=== PATIENT | male | born 1960 | race Caucasian/White ===

== ENCOUNTER 2017-07-28 13:45 | Inpatient (IN) ==
[2017-07-28] MEDS ORDERED: CeFAZolin Syr 2,000MG/20 ML 2,000 MG/20 ML SYRINGE IVPB ONE (14:13)
[2017-07-28] MEDS ORDERED: Plasma-Lyte A (PH 7.4) 1,000 ML IVC SCH (14:15)
--- NOTE | 2017-07-28 14:22 | Anesthesia Evaluation PreOp ---
Date of Encounter: 07/28/17 Time of Encounter: 14:20 - Past History Planned Operation: Revision R total knee arthroplasty Cardiac History: Denies any Significant Hx Pulmonary History: Denies Any Significant HX Other Medical History: Other (arthritis) Anesthesia History: No Prior Anesthetic Complications, Past Anesthesia (RTKR, R knee hardware removal, cholecystectomy, appendix, R knee scope x 2, L knee scope ) Alcohol Use: none Drug use: none Medications and Allergies Krill/Om-3/Dha/Epa/Phospho/Ast [Krill Oil 1,000 mg Softgel] 1 cap PO DAILY 07/28 [History] Magnesium 200 mg PO DAILY 07/28/17 [History] Multivitamin [One Daily Essential] 1 tab PO DAILY 07/28/17 [History] 3 Allergy/AdvReac Type Severity Reaction Status Date / Time No Known Allergies Allergy Verified 07/19/17 15:42 - Meds/Allergy Pre-op Review Medications Reviewed: Yes Allergies Reviewed: Yes Beta Blockers on Current Med List: No Anesthesia Results - Labs Laboratory Tests 07/19/17 07/19/17 07/19/17 15:52 15:52 15:52 WBC 7.1 Hgb 17.2 H Hct 52.1 H Plt Count 233 PT 10.9 INR 1.0 APTT 31.9 Sodium 137 Potassium 4.7 Chloride 103 Carbon Dioxide 29 BUN 14 Creatinine 0.96 Anesthesia Exam O2 Sat Height 1.85 m Height 1.85 m Height 1.85 m Weight 106.141 kg Weight 106.141 kg Weight 106.141 kg O2 Sat by Pulse Oximetry 95 Vital Signs Temp Pulse Resp BP Pulse Ox 97.8 F 78 18 159/94 95 07/28/17 13:58 07/28/17 13:58 07/28/17 13:58 07/28/17 13:58 07/28/17 13:58 Height: 1.85m Weight: 106kg NPO (# of Hours): >8 - HEENT Pupil (Motor): Pupils equal, EOMI Mallampati: II Teeth: Poor dentition Oral Opening: Greater than 3 - FIRST FRONT VENTILATOR LOC: Oriented FIRST FRONT VENTILATOR Motor: Normal RUE, Normal LUE, Normal RLE, Normal LLE, Normal Face FIRST FRONT VENTILATOR Sensory: Normal: RUE, LUE, RLE, LLE, Face - Cardiac Rhythm: Regular - Pulmonary Breath Sounds: bilateral Clear Respiratory Effort: Symmetrical Anesthesia Assess/Plan ASA Score: 2 Modified Natasha Scale for Level of Consciousness: Cooperative, oriented, and tranquil Anesthetic Plan: Regional (adductor canal nn block, spinal, r/b/a discussed, questions answered, consent obtained) Monitoring Plan: Standard Monitors Recovery Plan: PACU
[2017-07-28] MEDS ORDERED: Acetaminophen IV 1,000 MG/100 ML INFUS..BTL IVPB ONE (14:27)
[2017-07-28] MEDS ORDERED: *HR* Ropivacaine/PF 0.5% 20 ML VIAL ONE (14:34)
--- NOTE | 2017-07-28 14:39 | History & Physical Report ---
Date of Encounter: 07/28/17 Time of Encounter: 14:39 24 Hour HP Update - Instructions Instructions: If the History and Physical is less than 30 days old and was completed prior to A.M. admission and or procedure and has NOT been updated on calendar day of procedure please complete this update prior to performing procedure. - Update Patient reports changes in Medical Condition: No Changes in examination, assessment, or condition: No Changes in Medication: No Preop tests/diagnostics Reviewed: Yes Surgery Remains Indicated: Yes Consent for Planned Operative Procedure(s) Verified: Yes - Pre-Operative Checklist Preoperative Checklist Indicated: No Prophylactic Antibiotic Ordered: Yes Is VTE Prophylaxis Indicated?: Yes
[2017-07-28] MEDS ORDERED: *HR* Morphine Sulfate/PF 10 MG/10 ML AMPUL ONE (14:49)
[2017-07-28] MEDS ORDERED: Ketorolac 30 MG/ML VIAL ONE (14:49)
[2017-07-28] MEDS ORDERED: *HR* FentaNYL (PF) 100 MCG/2 ML VIAL ONE (14:49)
[2017-07-28] MEDS ORDERED: Lidocaine -MPF 2% 2 ML VIAL ONE (14:49)
[2017-07-28] MEDS ORDERED: Ondansetron 4 MG/2 ML VIAL ONE (14:49)
[2017-07-28] MEDS ORDERED: *HR* Propofol 200 MG/20 ML VIAL IVP ONE (14:49)
[2017-07-28] MEDS ORDERED: *HR* Midazolam HCl 2 MG/2 ML VIAL ONE (14:49)
[2017-07-28] MEDS ORDERED: Ethanol\\Acetic Acid\\Na Ace\\Ben 1,000 ML IRRIG.SOLN IR ONE (14:54)
--- NOTE | 2017-07-28 15:25 | Discharge Summary ---
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 - Discharge Medications Home Medications: Aspirin Enteric Coated [Aspirin EC] 325 mg PO BID #20 tablet.dr 07/28/17 [Rx] Krill/Om-3/Dha/Epa/Phospho/Ast [Krill Oil 1,000 mg Softgel] 1 cap PO DAILY 07/28 [History] Magnesium 200 mg PO DAILY 07/28/17 [History] Multivitamin [One Daily Essential] 1 tab PO DAILY 07/28/17 [History] OxyCODONE Immed Rel [Roxicodone 5 MG] 5 mg PO Q4HR PRN 6 Days #24 tablet [Rx] Allergies/Adverse Reactions: 3 Allergy/AdvReac Type Severity Reaction Status Date / Time No Known Allergies Allergy Verified 07/19/17 15:42 Primary care physician: Zeynep Vargas - Patient Status Disposition: Home, Self-Care Condition: Good Functional capacity at discharge: uses cane/walker Overall status at discharge: patient is progressing back to baseline - Discharge Instructions Follow Up With: Zeynep Vargas, SILK SCREEN OPERATOR [Primary Care Provider] - - Hospital Course Hospital course: Mr. Ambriz is a 57 year old male Status post revision right total knee The patient had an uneventful postoperative course. They received antibiotics and physical therapy and were discharged in stable condition. There will follow -up in the office in 2 weeks. - Time Spent with Patient Total time spent providing and/or coordinating discharge services:
--- NOTE | 2017-07-28 15:53 | Anesthesia Procedures ---
Date of Encounter: 07/28/17 Time of Encounter: 14:55 Procedures: Anesthesia - Epidural/Spinal Patient ID/Chart reviewed: Yes Patient examined: Yes Supplemental Oxygen: Nasal Cannula Supplemental Oxygen Rate (L/min): 2 Sedation: Versed (mg): 2 Site Prep: Sterile prep and drape, Povidone-Iodine 1% Patient position: upright Local Anesthetic: Lidocaine 1% Amount of Local Anesthetic used: 3 Interspace Used: L4-L5 Blood: No CSF: Yes Paresthesia: Yes (relieved with repositioning of needle) Spinal Needle Gauge: 25 Spinal Dose: bupivicaine .5%, 20 mg wityh duramorpoh .3mg Procedure: right total knee revision Vitals + FHT's: vss throughout procedure
--- NOTE | 2017-07-28 15:58 | Anesthesia Procedures ---
Date of Encounter: 07/28/17 Time of Encounter: 15:10 Procedures: Anesthesia - Nerve Block Procedure Date: 07/28/17 Time: 15:10 Allergies/Adv Reactions: Daphney Pre-op Diagnosis: Painful Right Knee Arthroplasty Surgical Procedure: Revision of Right Total Knee Arthroplasty Checklist: Correct Patient Identifier, Correct procedure, History checked Correct side: Right Blood Thinner: No Monitor Applied: EKG, BP, Pulse Oximetry Supplemental Oxygen via Nasal Cannula (L/min): 2 Sedation: Versed (mg): 0 (Pt received Versed with SAB) Indication: Primary Anesthesia Pre-op Neuro Deficits: No Block Type: Other (Adductor Canal) Catheter placed: No Sterile Technique: Yes Ultrasound used: Yes Anatomy identified: Yes Visual spread of Local: Yes Neuro Stimulation: No Blood on Needle Aspiration: No Smooth Injection of Local: Yes Pain with Injection of Local: No Prep: Chlorhexadine Needle: 22 x 50 mm Stimuplex (Echogenic) Local: Ropivacaine (.5% ) Volume (cc): 30 Number of Attempts: 1 Complications: None/effective block Vitals: VSS throughout procedure
[2017-07-28] MEDS ORDERED: EPHEDrine 50 MG/ML VIAL ONE (16:02)
[2017-07-28] MEDS ORDERED: *HR* Promethazine 25 MG/ML VIAL IVP PRN (16:45)
[2017-07-28] MEDS ORDERED: Albuterol 2.5 MG/3 ML NEBULIZER IH PRN (16:45)
--- NOTE | 2017-07-28 17:00 | Orthopedic Operative Note ---
Date of procedure: 07/28/17 Pre-op diagnosis: Right painful total knee, metal allergy, femoral loosening Post-op diagnosis: same Procedure: Procedure: Right revision total knee Estimated blood loss: 300 Hardware: Metal and polyethylene replacement. Biomet SSK femur: 65, 16 x 120 stem Tibia: 79, 14 x 80 stem Constrained Latonia: 20 Exam Under anesthesia: Full flexion and extension mid flexion varus valgus instability. Procedural Notes: No abnormal-looking fluid loosening of the femoral component. Operative procedure: The patient was brought to the operating room and placed on the operating room table. After general anesthesia was administered the operative knee was examined. Findings were noted in the exam under anesthesia. The operative extremity was prepped and draped in sterile surgical fashion. The patient received IV antibiotics prior to skin incision. A standard midline incision was made centered over the patella through the old incision. The incision was made through the skin and subcutaneous tissue. A medial parapatellar tendon approach was performed. Care was taken to preserve tissue along the medial aspect of the patella. And to protect the patella tendon. The deep MCL was released off the medial tibia. The infra patella fat pad was excised. Fluid was encountered this was normal joint fluid, Cultures were obtained and gram . The knee was brought into flexion the poly-was removed. The interface between the patient's femoral component and distal femur were disrupted with a osteotome and oscillating saw. Femoral component was loose and removed removed removed without significant bone loss. Attention was then turned to the tibial component. The same technique was used to remove the tibial component by disrupting the interface between the patient's tibial component and the patients proximal tibia. The tibial component was removed without significant bone loss. The tibia was sized to a 79 it was reamed up to a 14 x 80 Trial had good fit and fixation. The femur was sized to a 65, was reamed up to a 60 x 120 The finishing guide was seated and the box cut was made. The trial had good fit and fixation. Both trial components were seated and the 20 constrained Latonia was seated and secured. The knee had full flexion and full extension with no instability. Patella had excellent patella tracking. The trial components were removed. The knee sat for 2 minutes with a antimicrobial solution. It was irrigated out with 2 L of pulse irrigation. The components were assembled on the back table, the tibia cemented first followed by the femur. The 20 constrained liner was seated and secure. The knee was brought to full extension while the cement hardened. The patella was cemented and held in place with patellar holding clamp. After the cement hardened the knee was irrigated out again. The extensor mechanism was closed with a running #2 Fiberwire suture and a running #2 PDS suture. The deep tissue was irrigated and closed deep with #1 PDS suture superficially with 0 PDS suture. The skin was closed with skin jacque. The patient was placed in a sterile dressing and postoperative brace. They were extubated and transferred to recovery room in stable condition. Anesthesia: GETA Surgeon: Rc Purdy Was there an assistant financial accountant present: No Estimated blood loss (cc): 300 Condition: stable Disposition: PACU
[2017-07-28 17:46] LABS: Hematocrit 45.4 % (37.5-50.1); Hemoglobin 15.2 g/dL (12.9-16.9)
--- NOTE | 2017-07-28 17:48 | Anesthesia Evaluation Post Op ---
Date of Encounter: 07/28/17 Time of Encounter: 17:47 - Vital Signs Vital Signs: Vital Signs/O2 Sat, Most Current Temp Pulse Resp BP Pulse Ox 97.7 F 77 12 145/93 96 07/28/17 17:45 07/28/17 17:45 07/28/17 17:45 07/28/17 17:45 07/28/17 17:45 - Lungs Lungs: Clear Ascult./Percussion - Airway Airway: Non-obstructed - Cardiovascular Regular Rate - Mental Status Mental Status: Alert & Oriented, Answers Appropriately - Pain Pain Scale: 0 Pain Scale used: Numeric (1 - 10) - Nausea Vomiting Nausea Vomiting: Not Present - Hydration Hydration: Tolerates oral liquids - Discharge PostOp Status: Transfer Patient to floor Attestation: I have assessed this patient and find they meet discharge criteria.
[2017-07-28] MEDS ORDERED: *HR* Enoxaparin 30 MG/0.3 ML SYRINGE SQ SCH (18:00)
[2017-07-28] MEDS ORDERED: Sennosides 8.6 MG TABLET PO PRN (18:12)
[2017-07-28] MEDS ORDERED: MOM Conc 10 ML UD.LIQ PO PRN (18:12)
[2017-07-28] MEDS ORDERED: Ondansetron 4 MG/2 ML VIAL IVP PRN (18:12)
[2017-07-28] MEDS ORDERED: Naloxone 0.4 MG/ML INJ IVP PRN (18:12)
[2017-07-28] MEDS ORDERED: Temazepam 15 MG CAPSULE PO PRN (18:12)
[2017-07-29] MEDS: CeFAZolin Premix DUPLEX 2,000 MG/50 ML BAG IVPB SCH ×2 (00:17→09:00)
[2017-07-29] MEDS: Ringers Solution, Lactated 1,000 ML IVC SCH ×2 (00:22→12:09)
[2017-07-29 03:54] LABS: Hematocrit 43.9 % (37.5-50.1); Hemoglobin 14.4 g/dL (12.9-16.9)
[2017-07-29 04:19] LABS: BUN/Creatinine Ratio 14 (6-26); Blood Urea Nitrogen 13 mg/dL (6-20); Calcium 8.7 mg/dL (8.6-10.3); Carbon Dioxide 26 mEq/L (23-29); Chloride 103 mEq/L (98-107); Glucose 155 mg/dL (70-105); Osmolality,Calculated 285 (280-300); Potassium 4.8 mEq/L (3.5-5.1); Sodium 136 mEq/L (136-145); eGFR For African Americans > 60 (> 60); eGFR For Non-African Americans > 60 (> 60)
[2017-07-29] MEDS: *HR* Enoxaparin 30 MG/0.3 ML SYRINGE SQ SCH (05:14)
--- NOTE | 2017-07-29 08:01 | Orthopedics Progress Note ---
Date of Encounter: 07/29/17 Time of Encounter: 08:01 - Assessment and Plan (1) Painful total knee replacement, right Current Visit: Yes Status: Chronic Qualifiers: Encounter type: subsequent encounter Qualified Code(s): T84.84XD - Pain due to internal orthopedic prosthetic devices, implants and grafts, subsequent encounter; Z96.651 - Presence of right artificial knee joint; Z96.651 - Presence of right artificial knee joint (2) Status post revision of total replacement of right knee Current Visit: Yes Status: Acute (3) Allergy to metal Current Visit: Yes Status: Chronic Subjective Interval history: Patient was seen this morning doing well without complaints. Afebrile vital signs stable. Operative extremity: Neurovascularly intact Dressing clean dry and intact Calves nontender Assessment and plan: Continue with postoperative care Hematocrit 43 Objective Vital signs: Vital Signs Temp Pulse Resp BP Pulse Ox 07/29/17 07:28 97.9 F 84 16 118/72 95 07/29/17 04:01 97.7 F 80 18 133/78 96 07/29/17 00:53 97.8 F 91 16 142/88 94 07/28/17 21:45 97.8 F 97 16 152/74 94 07/28/17 20:50 97.5 F L 91 16 162/97 96 07/28/17 19:17 97.8 F 79 17 156/91 95 07/28/17 18:34 97.8 F 72 17 135/81 96 07/28/17 18:05 97.7 F 75 15 157/93 97 07/28/17 17:45 97.7 F 77 12 145/93 96 07/28/17 17:35 97.7 F 70 12 151/94 97 07/28/17 17:25 72 12 148/85 96 07/28/17 17:15 70 12 143/90 94 07/28/17 17:05 97.4 F L 77 16 141/87 97 07/28/17 14:53 77 16 198/100 96 07/28/17 13:58 97.8 F 78 18 159/94 95 Intake and Output 07/28/17 07/29/17 07/29/17 23:59 07:59 15:59 Intake Total 350 / 350 Output Total 275 / 275 325 / 325 Balance -275 / -275 25 / 25 Intake: Oral 350 / 350 Output: Urine 75 / 75 325 / 325 Estimated Blood Loss 200 / 200 - Labs CBC & BMP: 07/29/17 02:47 07/29/17 02:47 Labs: Abnormal lab results Glucose 155 mg/dL (70-105) H 07/29/17 02:47 - VTE Documentation of Mechanical Device: Venous foot pump, device Consult Discharge Plan - Plan Referrals: Zeynep Vargas, DERMATOLOGIST MANAGING PARTNER [Primary Care Provider] -
[2017-07-29] MEDS ORDERED: Magnesium Oxide 400 MG TABLET PO SCH (09:00)
[2017-07-29] MEDS ORDERED: Multivit/Ca/Min/Fe/FA 1 TAB TABLET PO SCH (09:00)
[2017-07-29] MEDS ORDERED: (Krill/Om-3/Dha/Epa/Phospho/Ast [Krill Oil 1,000 Mg S) PO SCH (09:00)
[2017-07-29] MEDS ORDERED: *HR* OxyCODONE Immed Rel 5 MG TABLET PO PRN (15:26)
[2017-07-29] MEDS: *HR* OxyCODONE Immed Rel 5 MG TABLET PO PRN ×2 (16:04→21:32)
--- NOTE | 2017-07-29 17:03 | Event Note ---
Date of Encounter: 07/29/17 Time of Encounter: 12:20 PCR- POD#1 Right revision total knee 07/28/17 PCR - Patient seen at bedside. doing well with no concerns. minimal drainage to distal dressing. dressing to be changed before discharge. Pain control: adequate All questions and concerns addressed. Educated on use of incentive spirometer, ambulation, and hydration. Patient educated on post-operative restrictions and care. Addressed: see above. D/C plan: home tomorrow with outpatient therapy
[2017-07-30] MEDS: *HR* OxyCODONE Immed Rel 5 MG TABLET PO PRN (02:03)
[2017-07-30 03:46] LABS: Hematocrit 36.2 % (37.5-50.1)
[2017-07-30 03:47] LABS: Hemoglobin 12.4 g/dL (12.9-16.9)
[2017-07-30 04:34] LABS: BUN/Creatinine Ratio 17 (6-26); Blood Urea Nitrogen 15 mg/dL (6-20); Calcium 8.5 mg/dL (8.6-10.3); Carbon Dioxide 26 mEq/L (23-29); Chloride 103 mEq/L (98-107); Glucose 124 mg/dL (70-105); Osmolality,Calculated 282 (280-300); Potassium 3.8 mEq/L (3.5-5.1); Sodium 135 mEq/L (136-145); eGFR For African Americans > 60 (> 60); eGFR For Non-African Americans > 60 (> 60)
[2017-07-30] MEDS: *HR* Enoxaparin 30 MG/0.3 ML SYRINGE SQ SCH (06:46)
--- NOTE | 2017-07-30 06:46 | Orthopedics Progress Note ---
Date of Encounter: 07/30/17 Time of Encounter: 06:45 - Assessment and Plan (1) Painful total knee replacement, right Current Visit: Yes Status: Chronic Qualifiers: Encounter type: subsequent encounter Qualified Code(s): T84.84XD - Pain due to internal orthopedic prosthetic devices, implants and grafts, subsequent encounter; Z96.651 - Presence of right artificial knee joint; Z96.651 - Presence of right artificial knee joint (2) Status post revision of total replacement of right knee Current Visit: Yes Status: Acute (3) Allergy to metal Current Visit: Yes Status: Chronic Subjective Interval history: Patient was seen this morning doing well without complaints. Afebrile vital signs stable. Operative extremity: Neurovascularly intact Dressing clean dry and intact Calves nontender Assessment and plan: Continue with postoperative care Hematocrit 36 discharged today Objective Vital signs: Vital Signs Temp Pulse Resp BP Pulse Ox 07/30/17 05:06 97.9 F 83 15 145/77 96 07/30/17 00:40 98.2 F 89 16 125/83 94 07/29/17 21:26 98.5 F 96 17 123/75 97 07/29/17 16:02 98.3 F 98 18 125/71 95 07/29/17 12:00 98.5 F 96 17 123/75 96 07/29/17 11:42 98.5 F 85 17 136/78 97 07/29/17 07:28 97.9 F 84 16 118/72 95 Intake and Output 07/29/17 07/29/17 07/30/17 15:59 23:59 07:59 Intake Total 50 / 50 Output Total 625 / 625 600 / 600 Balance 50 / 50 -625 / -625 -600 / -600 Intake: IV Fluids 50 / 50 Ancef Premix DUPLEX 2,000 mg In 50 / 50 50 ml @ 100 mls/hr IVPB Q8H DAVE Rx#:[id number] Output: Urine 625 / 625 600 / 600 Other: Meal Breakfast Percent of Meal Consumed 100% - Labs CBC & BMP: 07/30/17 03:19 07/30/17 03:19 Labs: Abnormal lab results Hgb 12.4 g/dL (12.9-16.9) L D 07/30/17 03:19 Hct 36.2 % (37.5-50.1) L 07/30/17 03:19 Sodium 135 mEq/L (136-145) L 07/30/17 03:19 Glucose 124 mg/dL (70-105) H 07/30/17 03:19 Calcium 8.5 mg/dL (8.6-10.3) L 07/30/17 03:19 - VTE Documentation of Mechanical Device: Intermittent pneumatic compression device Consult Discharge Plan - Plan Referrals: Zeynep Vargas CNP [Primary Care Provider] -
[2017-07-30 07:37] VITALS: BP 108/65
== END 2017-07-30 09:58 | disposition home or self-care (01) | DRG 468 ==
LOC: SAMDAY 13:45 → 3NENU 18:14
PROVIDERS: ADMIT Orthopaedic Surgery; ATTEND Orthopaedic Surgery